=== PATIENT | female | born 2005 | race Asian ===

== ENCOUNTER → 2024-12-01 13:14 | Outpatient (REF) | payer OTHER, SELFPAY | LOC: PNTC 13:14 | PROVIDERS: ATTENDING PHYSICIAN Nurse Practitioner Obstetrics & Gynecology | DX: O36.80X0 Pregnancy with inconclusive fetal viability, not applicable or unspecified (principal) | CPT/HCPCS: 76805 ==

== ENCOUNTER → 2025-01-31 09:40 | Outpatient (REF) | payer OTHER, SELFPAY | LOC: PNTC 09:40 | PROVIDERS: ATTENDING PHYSICIAN Nurse Practitioner Obstetrics & Gynecology | DX: Z36.3 Encounter for antenatal screening for malformations (principal); Z36.86 Encounter for antenatal screening for cervical length; O09.91 Supervision of high risk pregnancy, unspecified, first trimester; O28.3 Abnormal ultrasonic finding on antenatal screening of mother | CPT/HCPCS: 76811 ==